=== PATIENT | female | born 1935 | race Caucasian/White ===

== ENCOUNTER → 2020-08-26 | Outpatient (CLI) | payer OTHER ==
[~2020-08-26] MED LIST: LEVOTHYROXIN0.088 MG PO; LOVASTATIN 20 M20 MG PO; PROAIR HFA8.5 GM INH; RESTORIL15 MG PO
== END ==
LOC: SJCVCIMAG 13:05 → SJCVC 13:05
PROVIDERS: ATTEND Internal Medicine
DX: R94.31 Abnormal electrocardiogram [ECG] [EKG] (principal); I08.0 Rheumatic disorders of both mitral and aortic valves; I45.10 Unspecified right bundle-branch block; I11.9 Hypertensive heart disease without heart failure; R06.00 Dyspnea, unspecified; E78.5 Hyperlipidemia, unspecified; M19.90 Unspecified osteoarthritis, unspecified site; Z79.82 Long term (current) use of aspirin; Z79.899 Other long term (current) drug therapy

== ENCOUNTER → 2020-08-30 | Outpatient (CLI) | payer OTHER | LOC: SJCVCIMAG 10:38 | PROVIDERS: ATTEND Internal Medicine | DX: Z01.812 Encounter for preprocedural laboratory examination (principal); I10 Essential (primary) hypertension; R94.39 Abnormal result of other cardiovascular function study; R06.00 Dyspnea, unspecified; E78.00 Pure hypercholesterolemia, unspecified; Z79.82 Long term (current) use of aspirin; Z79.899 Other long term (current) drug therapy ==

== ENCOUNTER 2020-09-06 06:37 | Observation (INO) | payer OTHER ==
[~2020-09-06] VITALS: Ht 157.5 cm; Wt 79.8 kg
[2020-09-06] VITALS (11 sets, daily range): BP systolic 117–170; BP diastolic 51–82
[2020-09-06] MEDS ORDERED: ASA81BEC PO ×2 (07:19)
[2020-09-06] MEDS ORDERED: D3-501250 MCG PO ×2 (07:20)
[2020-09-06] MEDS ORDERED: FISH OIL 1,001000 M3 PO ×2 (07:21)
[2020-09-06] MEDS ORDERED: ATIVAN0.5 M1 PO ×2 (07:22)
[2020-09-06] MEDS ORDERED: COQ-1030 MG PO ×2 (07:22)
--- NOTE | 2020-09-06 11:15 | NUR ---
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 ADMISSION AND ASSESSMENT PERFORMED. VSS. PTS RIGHT GROIN SITE IS SOFT, NO HEMATOMA PRESENT WITH DRESSING CLEAN DRY AND INTACT. WILL CONTINUE TO MONITOR.
--- NOTE | 2020-09-06 11:40 | CATHLAB ---
[facility] [place] [address] INVASIVE PROCEDURE REPORT Name: MELISSA BRADY Room #: 216-P ADM IN M.R.#: [id number] Admission: 09/06/20 Attend Phys: Zach Turner MD, Discharge: Date of : 39 Report #: [id number] THIS REPORT FOR: cc: Roger Capone MD, Christopher B. MD Mancuso, Gerald M. MD [facility] ~ APPROVED REPORT Study performed: 09/06/2020 08:05:59 Patient Details Patient Status: Out-Patient Room #: The patient is a 85 year-old female Event Personnel Zach Turner Zipper Repairer, Isamar Gaines RN RN, Darci Nina RTR Scrub, Kalee Morejon RTR Monitor Procedures Performed Art Access - R femoral artery* Left Heart Cath w/or w/o Coronaries [id number] [facility] Place w/wo Plasty Single RCA 005333 Aortogram Abdominal Peripheral Angio 808244 Hemostasis w/ Mynx 72932 Initial Mod Sed Same Phys/QHP Gr5y 610715 44001 Mod Sed Same Phys/QHP Ea 434169 Procedure Narrative The Right Groin^ was infiltrated with 1% Lidocaine subcutaneous anesthesia. A PINNACLE 6FR Sheath #[id number] sheath was inserted into the RFA^. Coronary angiography was performed using coronary diagnostic catheters. The right coronary system was accessed and visualized with a JR4 catheter. The left coronary system was accessed and visualized with a JL4 catheter. The left ventricle was accessed and visualized with a PIGTAIL catheter. Left ventriculogram was performed in 30 degree projection. An aortogram of the abdominal aorta was performed. Closure device was deployed with a Fr MYNXGRIP 6/7F #[id number]. The patient tolerated the procedure well and there were no complications associated with the procedure. There was no hematoma. Intraoperative Conscious Sedation Sedation start time: 8:43 Case end Time: 9:28 Fentanyl 100 mcg Versed 2.0 mg [address] [place] [address] INVASIVE PROCEDURE REPORT Name: MELISSA BRADY Richard Room #: 216-P [facility]#: [id number] Admission: 09/06/20 Attend Phys: Zach Turner, Discharge: Date of : 39 Report #: [id number] Fluoro Time: 6.20 minutes Dose: DAP 6660.50 cGycm2 823 mGy Contrast Type and Amount: Omnipaque 155 ml Hemodynamics The aortic pressure is 174/68 mmHg with a mean of 110 mmHg. The left ventricular pressure is 175/4 mmHg with a mean of mmHg. The left ventricular end diastolic pressure is 35 mmHg. PCI Technique Lesion Percutaneous coronary intervention was performed on the proximal right coronary artery. A LAUNCHER 6FR 3DRC #[id number] Guide Catheter was used to engage the ostium. A Luge Wire .014 x 182CM #[id number] Interventional Guidewire was used to cross the lesion. BALLOON DILATION A Balloon catheter Sprinter OTW 2.5 x 12 #[id number] was inserted and inflated up to 8.00atm for 18seconds. Additional Inflation: 12.00atm for 16seconds. STENT DEPLOYMENT A drug-eluting stent RESOLUTE SYL OTW 2.75 X 15 #[id number] was inserted and inflated up to 14.00atm for 22seconds. Conclusion #1. Successful PTCA stent of the proximal RCA 90% stenosis to 0% with placement of a 2.75 x 15 resolute drug-eluting stent postdilated 2.9 mm LIONEL grade III flow anatomically dominant vessel. #2 left main with mild distal narrowing of 20 to 30% giving rise to LAD and circumflex. #3 the LAD is mildly diseased and a smaller attenuated vessel distally extends to the apex no occlusive disease. #4 circumflex OM is nondominant but moderate in size with mild tortuosity no occlusive disease. #5 normal left ventricular size and systolic function EF 55% #6 normal abdominal aorta no evidence of aneurysm brisk distal flow. Recommendations and plan: Continue aggressive risk factor modification. Dual antiplatelet therapy has been initiated. Patient hemodynamically stable and pain-free upon transfer to CCU to follow post coronary stent protocol. <ELECTRONICALLY SIGNED> By: Zach Turner MD, [facility] 09/06/20 1140 1140 1140 Zach Turner MD, FACC /INF
[2020-09-06] MEDS ORDERED: CLOPIDOGREL75 MG PO ×2 (14:53)
[2020-09-07 00:01] VITALS: BP 126/55
[2020-09-07 03:31] LABS: HEMATOCRIT 36.9 % (37.0-47.0); HEMOGLOBIN 12.1 gm/dL (12.0-15.0); MCH 29.8 pg (26.0-34.0); MCHC 32.9 g/dL (28.0-37.0); MCV 90.7 fL (80.0-100.0); RBC 4.07 mil/uL (4.20-5.00); RDW 13.6 % (10.5-14.5)
[2020-09-07 04:02] LABS: ALBUMIN 2.9 g/dL (3.4-5.0); CALCIUM 9.2 mg/dL (8.5-10.1); POTASSIUM 4.1 mmol/L (3.5-5.1); TOTAL BILIRUBIN 0.3 mg/dL (0.2-1.0); TOTAL PROTEIN 6.3 g/dL (6.4-8.2); TROPONIN-I 0.51 ng/mL (<0.06)
--- NOTE | 2020-09-07 04:12 | NUR ---
SLEPT MOST OF SHIFT. UP AD ELIZABETH IN ROOM WITHOUT PROBLEMS. DENIES COMPLAINTS OF CHEST PAIN OR SHORTNESS OF AIR. RIGHT GROIN REMAINS WITH DRESSING C/D/I, NO HEMOTOMA OR BLEEDING NOTED. PROGRESSING TOWARDS DISCHARGE GOALS TO HOME. CONTINUE TO ASSES CLOSELY.
[2020-09-07 04:45] VITALS: BP 114/60
[2020-09-07 07:42] VITALS: BP 106/9
--- NOTE | 2020-09-07 08:09 | NUR ---
ASSUMED PT CARE AT 0700. PT UP BRUSHING TEETH IN BATHROOM. PERFORMED ASSESSMENT CHARTED. VSS. WILL CONTINUE TO MONITOR. PTS GOAL TODAY IS TO GO HOME WITH DAUGHTER.
[2020-09-07 10:23] VITALS: BP 106/9
[2020-09-07 11:24] VITALS: BP 110/46
--- NOTE | 2020-09-09 07:36 | EKG ---
[address] [place] [address] ELECTROCARDIOGRAM REPORT Name: MELISSA BRADY Room #: 216-[facility] IN .R.#: [id number] Admission: 09/06/20 Attend Phys: Zach Turner MD, Discharge: 09/07/20 Date of : 39 Report #: [id number] [facility] Test Date: 2020-09-07 Test Time: 07:29:23 Pat Name: MELISSA BRADY Department: Room: 216 Gender: F Grinder And Honer Operator Automatic: SANGEETA : 1935 Requested By: Eliz Hebert Order Number: [id number] MD: Db Leon Measurements Intervals [place] Rate: 65 P: -35 OR: 147 QRS: -22 QRSD: 96 T: 126 QT: 415 QTc: 432 Interpretive Statements Sinus rhythm LVH with secondary repolarization abnormality Compared to ECG 04/18/2015 19:38:39 Left ventricular hypertrophy now present Early repolarization now present Sinus arrhythmia no longer present Electronically Signed On 09-09-2020 7:36:28 SAND BOBBER by Db Leon [email or web address] <ELECTRONICALLY SIGNED> By: Db Leon MD, [facility] 09/09/20 0736 8 Db Leon MD, [facility] /EPI
== END 2020-09-07 12:16 | disposition home or self-care (01) ==
LOC: CATH 06:37 → 2N 10:27 → CATH 10:42 → 2N 09-07 12:16
PROVIDERS: Nurse Practitioner Adult Health; ADMIT Internal Medicine Cardiovascular Disease; ATTEND Internal Medicine Cardiovascular Disease
DX: I25.10 Atherosclerotic heart disease of native coronary artery without angina pectoris (principal); I10 Essential (primary) hypertension; E78.5 Hyperlipidemia, unspecified; Z79.899 Other long term (current) drug therapy
CPT/HCPCS: 10078

== ENCOUNTER → 2020-09-13 | Outpatient (CLI) | payer OTHER ==
[~2020-09-13] MED LIST changes: +ASA81BEC PO; +ATIVAN0.5 M1 PO; +CLOPIDOGREL75 MG PO; +COQ-1030 MG PO; +D3-501250 MCG PO; +FISH OIL 1,001000 M3 PO
== END ==
LOC: SJCVC 11:10
PROVIDERS: ATTEND Internal Medicine
DX: R94.31 Abnormal electrocardiogram [ECG] [EKG] (principal); I10 Essential (primary) hypertension; E78.00 Pure hypercholesterolemia, unspecified; Z79.82 Long term (current) use of aspirin; Z79.899 Other long term (current) drug therapy

== ENCOUNTER → 2020-10-11 | Outpatient (CLI) | payer OTHER | LOC: SJCVC 11:07 | PROVIDERS: ATTEND Internal Medicine | DX: I10 Essential (primary) hypertension (principal); R06.00 Dyspnea, unspecified; Z79.82 Long term (current) use of aspirin; Z79.899 Other long term (current) drug therapy ==

== ENCOUNTER → 2020-10-24 | Outpatient (CLI) | payer OTHER | LOC: SJCVC 11:14 | PROVIDERS: ATTEND Internal Medicine | DX: I10 Essential (primary) hypertension (principal); Z79.82 Long term (current) use of aspirin; Z79.899 Other long term (current) drug therapy ==

== ENCOUNTER → 2020-11-14 | Outpatient (CLI) | payer OTHER | LOC: SJCVC 10:53 | PROVIDERS: ATTEND Internal Medicine | DX: I25.10 Atherosclerotic heart disease of native coronary artery without angina pectoris (principal); I10 Essential (primary) hypertension; E78.2 Mixed hyperlipidemia; Z68.34 Body mass index [BMI] 34.0-34.9, adult; Z95.5 Presence of coronary angioplasty implant and graft; Z79.899 Other long term (current) drug therapy ==

== ENCOUNTER → 2020-12-05 | Outpatient (CLI) | payer OTHER | LOC: SJCVC 10:56 | PROVIDERS: ATTEND Internal Medicine | DX: I10 Essential (primary) hypertension (principal); E78.2 Mixed hyperlipidemia; R06.00 Dyspnea, unspecified; R94.39 Abnormal result of other cardiovascular function study; R94.31 Abnormal electrocardiogram [ECG] [EKG]; Z68.34 Body mass index [BMI] 34.0-34.9, adult; Z79.82 Long term (current) use of aspirin; Z79.899 Other long term (current) drug therapy ==

== ENCOUNTER → 2021-01-22 | Outpatient (CLI) | payer OTHER | LOC: SJCVC 12:38 | PROVIDERS: ATTEND Internal Medicine | DX: R07.2 Precordial pain (principal); R06.00 Dyspnea, unspecified; I10 Essential (primary) hypertension; R53.83 Other fatigue; E78.2 Mixed hyperlipidemia; Z68.34 Body mass index [BMI] 34.0-34.9, adult; Z79.82 Long term (current) use of aspirin; Z79.899 Other long term (current) drug therapy ==

== ENCOUNTER → 2021-01-27 | Outpatient (CLI) | payer OTHER | LOC: SJCVCIMAG 10:42 | PROVIDERS: ATTEND Internal Medicine | DX: R06.00 Dyspnea, unspecified (principal); I10 Essential (primary) hypertension; R42 Dizziness and giddiness; E78.5 Hyperlipidemia, unspecified; Z98.61 Coronary angioplasty status; Z79.82 Long term (current) use of aspirin; Z79.899 Other long term (current) drug therapy ==

== ENCOUNTER → 2021-04-08 | Outpatient (CLI) | payer OTHER | LOC: SJCVC 13:53 | PROVIDERS: ATTEND Internal Medicine | DX: I10 Essential (primary) hypertension (principal); Z79.82 Long term (current) use of aspirin; Z79.899 Other long term (current) drug therapy ==

== ENCOUNTER → 2021-04-29 | Outpatient (CLI) | payer OTHER | LOC: SJCVC 13:27 | PROVIDERS: ATTEND Internal Medicine | DX: I10 Essential (primary) hypertension (principal); Z79.82 Long term (current) use of aspirin; Z79.899 Other long term (current) drug therapy ==

== ENCOUNTER → 2021-06-10 | Outpatient (CLI) | payer OTHER | LOC: SJCVC 14:31 | PROVIDERS: ATTEND Internal Medicine | DX: I10 Essential (primary) hypertension (principal); R53.83 Other fatigue; E78.2 Mixed hyperlipidemia; Z79.82 Long term (current) use of aspirin; Z79.899 Other long term (current) drug therapy ==

== ENCOUNTER → 2021-09-01 | Outpatient (CLI) | payer OTHER | LOC: SJCVC 14:01 | PROVIDERS: ATTEND Internal Medicine | DX: I45.10 Unspecified right bundle-branch block (principal); R94.31 Abnormal electrocardiogram [ECG] [EKG]; R53.83 Other fatigue; I10 Essential (primary) hypertension; E78.2 Mixed hyperlipidemia; Z79.82 Long term (current) use of aspirin; Z79.899 Other long term (current) drug therapy ==